=== PATIENT | female | born 1990 | race Caucasian/White ===

== ENCOUNTER 2020-02-07 16:32 | Emergency (ER) | payer OTHER, SELFPAY ==
[2020-02-07 17:19] VITALS: BP 140/78; PULSE 77; RESP 16; TEMP 36.7; O2SAT 100; BMI 26.6
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
== END 2020-02-07 19:08 | disposition home or self-care (01) ==
PROVIDERS: Emergency Provider Internal Medicine
DX: S16.1XXA Strain of muscle, fascia and tendon at neck level, initial encounter (principal); M54.2 Cervicalgia; M79.632 Pain in left forearm; V43.52XA Car driver injured in collision with other type car in traffic accident, initial encounter; Y93.9 Activity, unspecified; Y92.410 Unspecified street and highway as the place of occurrence of the external cause; Y99.9 Unspecified external cause status; Z79.899 Other long term (current) drug therapy
CPT/HCPCS: 73090; 73110; 73130; 99283; 99284

== ENCOUNTER 2020-02-17 20:48 | Emergency (ER) | payer SELFPAY ==
--- NOTE | 2020-02-17 | XR_ITS ---
EXAMINATION: RIGHT FOOT AND ANKLE 6 VIEWS CLINICAL INFORMATION: Pain and swelling after fall. COMPARISON: None. TECHNIQUE: AP, lateral, oblique views of the right foot were obtained in addition to AP, lateral and oblique views of the right ankle. FINDINGS: There are no fractures or dislocations. There is soft tissue swelling overlying the lateral malleolus. No ankle joint effusion is identified. XR/XR ankle RT 2V IMPRESSION: Soft tissue swelling without fracture or dislocation.
--- NOTE | 2020-02-17 | XR_ITS ---
EXAMINATION: RIGHT FOOT AND ANKLE 6 VIEWS CLINICAL INFORMATION: Pain and swelling after fall. COMPARISON: None. TECHNIQUE: AP, lateral, oblique views of the right foot were obtained in addition to AP, lateral and oblique views of the right ankle. FINDINGS: There are no fractures or dislocations. There is soft tissue swelling overlying the lateral malleolus. No ankle joint effusion is identified. XR/XR foot RT min 3V IMPRESSION: Soft tissue swelling without fracture or dislocation.
[2020-02-17 21:15] VITALS: BP 113/61; PULSE 72; RESP 16; TEMP 36.9; O2SAT 99; BMI 26.6
--- NOTE | 2020-02-17 22:23 | ED.FALL ---
HPI - Fall General Chief Complaint: Fall Stated Complaint: FALL Time Seen by Provider: 02/17/20 21:43 Source: patient Mode of arrival: ambulatory Limitations: language barrier History of Present Illness HPI Narrative: patient tripped on stairs and fell about 3 steps spraining her right ankle without any significant deformity able to ambulate, no other injuries complaint: fall Onset (ago): hour(s) ( few) Fall from: down stairs (#) Fall witnessed: no Place fall occurred: home Loss of consciousness: none Related Data Previous Rx's Medication Instructions Recorded acetaminophen [Tylenol Extra 500 mg PO Q6H PRN #20 tab 02/07/20 Strength] cyclobenzaprine 5 mg PO Q8H PRN 5 Days #14 tab 02/07/20 lidocaine [Lidoderm] 1 patch TOPICAL DAILY PRN #30 ea 02/07/20 MDD remove after 12 hours naproxen 500 mg PO BID PRN 10 Days #20 tab 02/07/20 naproxen [Naprosyn] 500 mg PO BID #20 tab 02/17/20 Allergies Allergy/AdvReac Type Severity Reaction Status Date / Time No Known Allergies Allergy Verified 02/07/20 17:23 Review of Systems Review of Systems: Yes all other systems are reviewed and are negative PMFSH Past Medical History Medical History Breast prosthesis or implant fitting/adjustment No known health problems Social History Social History Advance Directives: No Advance Directives Information Provided: No Physical Exam Vital Signs: Vital Signs: Last Vital Signs Temp 98.4 F 02/17/20 21:15 Pulse 72 02/17/20 21:15 Resp 16 02/17/20 21:15 BP 113/61 02/17/20 21:15 Pulse Ox 99 02/17/20 21:15 Body Mass Index 26.6 Const: General: cooperative, healthy appearing, comfortable and no acute distress Resp: Effort & Inspection: normal respiratory effort Auscultation: clear to auscultation bilaterally Cardio: Rate: regular rate Rhythm: regular rhythm Heart sounds: S1 normal heart sound present and S2 normal heart sound present Extrem: Ankle/foot/toe images: 1. mild tenderness with swelling good range of movement Course Course Course Narrative: patient with mild injury x-ray negative for any fracture Silvino wrap was applied will discharge patient home on ibuprofen / naproxen Discharge Plan Discharge Clinical Impression: Sprain and strain of ankle Patient Disposition: Home, Self-Care Instructions: Ankle Sprain (ED) Prescriptions: New naproxen [Naprosyn] 500 mg tablet 500 mg PO BID Qty: 20 RF: 0 No Action acetaminophen [Tylenol Extra Strength] 500 mg tablet 500 mg PO Q6H PRN (Reason: pain or fever) Qty: 20 RF: 0 lidocaine [Lidoderm] 5 % adhesive patch,medicated 1 patch topical DAILY MDD remove after 12 hours PRN (Reason: pain) Qty: 30 RF: 0 naproxen 500 mg tablet 500 mg PO BID PRN (Reason: pain) 10 Days Qty: 20 RF: 0 cyclobenzaprine 5 mg tablet 5 mg PO Q8H PRN (Reason: pain (scale score 7-10)) 5 Days Qty: 14 RF: 0 Interventions: ED Discharge Assessment Last Done: 02/17/20 22:43 Discharge Date/Time: 02/17/20 22:48 Print Language: Kinyarwanda
[2020-02-17] MEDS: Ibuprofen 600 MG TABLET PO (22:40)
== END 2020-02-17 22:48 | disposition home or self-care (01) ==
PROVIDERS: Emergency Provider Internal Medicine
DX: S93.401A Sprain of unspecified ligament of right ankle, initial encounter (principal); M25.571 Pain in right ankle and joints of right foot; W10.9XXA Fall (on) (from) unspecified stairs and steps, initial encounter; Y93.9 Activity, unspecified; Y92.009 Unspecified place in unspecified non-institutional (private) residence as the place of occurrence of the external cause; Y99.9 Unspecified external cause status; Z79.899 Other long term (current) drug therapy
CPT/HCPCS: 73600; 73630; 99283; 99284